=== PATIENT | female | born 1990 | race Caucasian/White ===

== ENCOUNTER → 2019-01-19 09:54 | Outpatient (CLI) | payer MEDICAID, SELFPAY ==
[2019-01-24 08:20] LABS: HPV Reflexed? NOT INDICATED
== END ==
PROVIDERS: Family Provider Family Medicine; PCP Family Medicine; Visit Provider Obstetrics & Gynecology
DX: Z12.4 Encounter for screening for malignant neoplasm of cervix (principal)
CPT/HCPCS: 87624; 88175; G0145

== ENCOUNTER → 2019-11-07 15:30 | Outpatient (CLI) | payer MEDICAID, SELFPAY ==
[2019-11-08 14:27] LABS: Chlamydia Trachomatis by PCR Negative (Negative); Neisserai gonorrhoeae by PCR Negative (Negative); Probe Check PASS; Sample Adequacy Control PASS; Specimen Processing Control PASS
== END ==
PROVIDERS: Visit Provider Obstetrics & Gynecology
DX: Z11.3 Encounter for screening for infections with a predominantly sexual mode of transmission (principal)
CPT/HCPCS: 87491; 87591

== ENCOUNTER → 2019-11-23 | Outpatient (CLI) | payer MEDICAID, SELFPAY ==
[2019-11-23 15:59] LABS: Color, Urine Yellow (Yellow); Glucose, Dipstick Normal (Normal); Ketone-Dipstick Negative (Negative); Leukocyte Esterase-Dipstick 500 /ul (Negative); Nitrite-Dipstick Negative (Negative); Occult Blood-Urine Negative /ul (Negative); Protein-Dipstick 15 mg/dl (Negative); Urine Bilirubin Dipstick Negative (Negative); Urine Clarity Clear (Clear); Urine Urobilinogen Normal (Normal)
[2019-11-23 16:20] LABS: Amphetamine Urine VISTA NEGATIVE (<1000 ng/mL); Barbiturate Urine VISTA NEGATIVE (< 200 ng/mL); Benzodiazepine Urine VISTA NEGATIVE (< 200 ng/mL); Cocaine Urine VISTA NEGATIVE (< 300 ng/mL); Ecstacy Urine VISTA NEGATIVE (< 500 ng/mL); Methadone Urine VISTA NEGATIVE (< 300 ng/mL); PCP Urine VISTA NEGATIVE (< 25 ng/mL); THC Urine VISTA NEGATIVE (< 50 ng/mL); Thyroid Stim Hormone (TSH) 3.24 uIU/mL (0.358-3.74); Vista UDS pH Range 5
[2019-11-23 16:33] LABS: Absolute Lymphocyte Count 0.97 X10^3/uL (0.83-4.51); Absolute Neutrophil Count 5.3 X10^3/uL (2.0-7.7); Basophil# 0.02 X10^3/uL; Basophil% 0.3 % (0-1); Eosinophil# 0.01 X10^3/uL; Eosinophils% 0.1 % (0-5); Hematocrit 41.5 % (37-47); Hemoglobin 13.9 g/dL (12.0-15.0); Lymphocyte # 0.97 X10^3/ul (4.0); Mean Corp Hgb Conc 33.5 g/dL (32-36); Mean Corpuscular Hgb 28.1 pg (27.0-32.0); Mean Platelet Vol. 9.6 fl (6.2-12.0); Monocyte# 0.65 X10^3/uL; Monocyte% 9.4 % (0-10); NRBC Flagged by Analyzer 0 % (0-5); Neutrophil # 5.27 X10^3/uL (2.7-7.7); Neutrophil % 75.8 % (47-70); Platelet Count 255 K/mm3 (150-450); RBC Distribution Width CV 13.4 % (11.6-14.6); RBC Distribution Width SD 41.3 fl (35.1-43.9); Red Blood Count 4.94 M/mm3 (4.2-5.4)
[2019-11-24 10:11] LABS: HIV - WCH Non-Reactive (Nonreactive); Hepatitis B Surface Antigen Non-Reactive (Nonreactive); Hepatitis C Antibody Non-Reactive (Nonreactive); Rubella IgG 60.1 IU/mL
[2019-11-30 02:23] LABS: Prenatal RPR NONREACTIVE (NONREACTIVE)
== END | disposition home or self-care (01) ==
LOC: WOBLAB 13:10
PROVIDERS: Referring Provider Obstetrics & Gynecology; Visit Provider Obstetrics & Gynecology
DX: Z34.81 Encounter for supervision of other normal pregnancy, first trimester (principal)
CPT/HCPCS: 80307; 81002; 84443; 85025; 86703; 86762; 86803; 87340

== ENCOUNTER → 2020-05-28 | Outpatient (CLI) | payer MEDICAID, SELFPAY ==
[2017-12-12 19:14] VITALS: BMI 28.2
== END | disposition home or self-care (01) ==
LOC: LABSPEC 05-29 08:46
PROVIDERS: Visit Provider Obstetrics & Gynecology
DX: Z36.85 Encounter for antenatal screening for Streptococcus B (principal)
CPT/HCPCS: 87081

== ENCOUNTER 2020-06-23 05:18 | Inpatient (IN) | payer MEDICAID, SELFPAY ==
[2017-12-12 19:14] VITALS: BMI 28.2
[2020-06-23] VITALS (25 sets, daily range): BP systolic 87–135; BP diastolic 45–78; PULSE 85–116; TEMP 36.3–37.1; O2SAT 96–98; BMI 35.2
[2020-06-23] MEDS: 0.9% Saline Lock 10 ML Syringe IV (05:50)
[2020-06-23 06:04] LABS: Absolute Lymphocyte Count 2.17 X10^3/uL (0.83-4.51); Absolute Neutrophil Count 8.9 X10^3/uL (2.0-7.7); Basophil# 0.05 X10^3/uL; Basophil% 0.4 % (0-1); Eosinophil# 0.23 X10^3/uL; Eosinophils% 1.8 % (0-5); Hematocrit 35.3 % (37-47); Hemoglobin 11.2 g/dL (12.0-15.0); Lymphocyte # 2.17 X10^3/ul (4.0); Lymphocyte % 16.8 % (19-41); Mean Corp Hgb Conc 31.7 g/dL (32-36); Mean Corpuscular Volume 88.3 fL (81-99); Monocyte# 1.16 X10^3/uL; NRBC Flagged by Analyzer 0.2 % (0-5); Neutrophil # 8.88 X10^3/uL (2.7-7.7); Neutrophil % 68.7 % (47-70); Platelet Count 184 K/mm3 (150-450); RBC Distribution Width CV 17.5 % (11.6-14.6); RBC Distribution Width SD 55.7 fl (35.1-43.9); White Blood Count 12.9 K/mm3 (4.4-11.0)
--- NOTE | 2020-06-23 07:04 | PCM.HP.OB ---
- Problem List (1) 39 weeks gestation of Status: Acute History Date of Admission: 06/23/20 Final KAYLA: 06/24/20 Final KAYLA Source: US <20 weeks Gestational age: 39 Weeks and 6 Days History of this : This is a 30 year-old, G [3], P [2002], at 39 6/7 weeks gestational age with c/o leaking of fluid. + FM, no vaginal bleeding. + contractions. Medical History: Medical History (Last Updated 06/23/20 @ 07:[address] Negin Morris MD) Patient denies medical problems Z78.9 Allergies No Known Allergies Allergy (Verified 06/23/20 05:59) Home Medications: Home Medications Calcium Carbonate [Tums] 1,000 mg PO TIDCM 12/02/17 Vit No.130/Iron/Folic [ Vitamins] 1 each PO DAILY 12/02/17 Smoking Status: Former smoker Alcohol: None Number of Fetus(es): 1 NST - FHR Rate Baby A Baseline: 125 Variability:: Moderate Accelerations:: 15 x 15 Decelerations:: None NST Reactive:: Yes FHR Category:: Category I Uterine Activity:: 3/10 min History Past Pregnancies: Past Pregnancies Delivery Date Name GA/ Weeks Outcome Route Wt Sex Labor Length Anesthesia Delivery Location Provider FOB 07/2011 39 Precip in ED [id number] M 6 None [facility] 11/2017 40 IOL, rapid second stage [id number] M 4 Epidural [facility] Labs: Mom's Problem List Problem Status Onset Code 39 weeks gestation of Acute [id number].39 Mom's Labs & Results 06/23/20 06/23/20 05:50 05:50 WBC 12.9 H RBC 4.00 L Hgb 11.2 L Hct 35.3 L MCV 88.3 MCH 28.0 MCHC 31.7 L RDW Std Deviation 55.7 H RDW Coeff of Loyda 17.5 H Plt Count 184 MPV 9.0 Immature Gran % (Auto) 3.300 H Neut % (Auto) 68.7 Lymph % (Auto) 16.8 L Gage % (Auto) 9.0 Eos % (Auto) 1.8 Baso % (Auto) 0.4 Absolute Neuts (auto) 8.9 H Absolute Lymphs (auto) 2.17 Nucleated RBC % 0.2 Blood Type A NEGATIVE Antibody Screen NEGATIVE Course Did the patient receive Yes care? Labs Blood Type: A RH: NEGATIVE RPR/VDRL/Syphilis Nonreactive Rubella status Immune HbSAg Negative Date Done: 11/13/20 Chlamydia Negative Gonorrhea Negative HIV/AIDS Non-Reactive Group B Strep: Negative Current Obstetrical History Gestational Diabetes No Incompetent Cervix No Infertility No IUGR No Macrosomia No Hypertension/Pre-eclampsia No Placenta Previa/Abruption No PTL/PROM No Uterine anomaly No Oligohydramnios No Polyhydramnios No Multiple gestation No Past Medical History Asthma No Diabetes No Hypertension No Heart disease No Mitral valve prolapse No Neurologic/Seizure disorder/ No Migraines Kidney disease No Liver disease No Varicosities No Clotting disorders/Hx of DVT No Thyroid Dysfunction No Other medical diseases No Psychiatric disorders No Major trauma No Abnormal PAP smear No Sleep apnea No Mammogram in the last 2 years No Social History Marital Status: SINGLE Alleged father Kevin Hx Smoking No Smoking Status Former smoker How long have you used n/a substances (years)? Expected Infant Delivery Method: Spontaneous Vaginal Describe any other labor & delivery plans:: Expectant management Number of Visits: 12 Review of Systems Constitutional: Denies: Chills, Fever Eyes: Denies: Vision Change HEENT: Denies: Head Aches, Sore Throat Cardiovascular: Denies: Chest Pain Respiratory: Denies: Shortness of Breath Gastrointestinal: Denies: Constipation, Diarrhea, Nausea Physical Exam Vitals: Vital Signs Temp Pulse BP Pulse Ox 98.3 F 94 127/73 H 96 06/23/20 06:13 06/23/20 06:14 06/23/20 06:14 06/23/20 06:13 General: Alert, Oriented x3, Cooperative, No apparent distress HEENT: Atraumatic, Normocephalic Cardiovascular: Regular rate, Regular Rhythm, Normal S1, Normal S2 Lungs: Clear to auscultation, Normal air movement Abdomen: Soft, Non Tender, Non-Distended, Gravid Extremities:: No edema Neurological: Neuro grossly intact Estimated gestational size: Appropriate for gestational size Presentation: - - cephalic on US Cervix Dilation (cm): 2.5 - per RN exam B [facility] Station: -3 Effacement (%): 50 Assessment/Plan All Active Problems 39 weeks gestation of (Acute) This is a 30 year-old, G [3], P [2], at 39 6/7 weeks gestational age with SROM, latent labor, Cat I FHR -Recent outpatient [id number] negative
--- NOTE | 2020-06-23 12:49 | PCM.PN.BLA ---
Progress Note LABOR PROGRESS NOTE Verna is doing well. No complaints. Contractions remain mild. AVSS GEN - NAD, AAO x 3 FHR 140, moderate variability, no accelerations, no decelerations TOCO 2/10 min SVE 3/50/-3, moderate and midposition A/P: 30yo @ 39 6/7wga with SROM in latent labor, Cat I FHR -Recommended pitocin. ROM > 8h without significant change. Discussed r/b/i and expectant management as alternative. Pt agreeable to proceed. -Maternal and statuses reassuring STROKE Vital Signs/Narrative: Vital Signs Temp Pulse BP Pulse Ox 06/23/20 12:32 93 129/72 H 06/23/20 11:35 98.4 F 94 112/73 98 06/23/20 09:54 103 H 113/64 06/23/20 09:03 98.4 F 100 135/78 H
[2020-06-23] MEDS: Lactated Ringers 1,000 ML 200 ML IV (12:55)
[2020-06-23] MEDS: Oxytocin 30 units/NS 500 ml 30 UNITS/500 ML IV.SOLN IV (12:55)
[2020-06-23] MEDS: Lactated Ringers 500 ML 999 ML IV (18:06)
[2020-06-23] MEDS: Oxytocin 30 units/NS 500 ml 30 UNITS/500 ML IV.SOLN 334 UNITS IV (18:27)
--- NOTE | 2020-06-23 18:33 | PCM.OPRPT ---
Problem List (1) 39 weeks gestation of Status: Acute (2) (spontaneous vaginal delivery) Status: Acute Vaginal Delivery Maternal Presentation: Spontaneous Rupture of Membranes Method of Induction: - - Pitocin augmentation Amniotic Membrane Rupture Type: Spontaneous at home Rupture of Membrane time: 06/23/20 0340h Amniotic Fluid Description: Clear Final KAYLA: 06/24/20 Final KAYLA Source: US <20 weeks Gestational age: 39 Weeks and 6 Days Date of Procedure: 06/23/20 Pre-Operative Diagnosis: 39 6/7 wga, labor Post-Operative Diagnosis: 39 6/7 wga, labor Surgery/ Procedure Performed: Spontaneous Vaginal Delivery Type of Anesthesia: None Description of Procedure: Patient was 7cm dilaton my arrival and progressed to 8.5cm with Category I FHR. She began involuntary pushing. With further expulsive efforts there was Cat II FHR with deepening variable decelerations. ISE placed with exam anterior lip with 0 station. Pitocin was discontinued and oxygen administered while patient breathed through contractions. Exam remained unchanged. Patient was repositioned into hands and knees. She again began involuntary pushing followed by of . The mouth and nares were bulb suctioned and nuchal cord x 1 was reduced. She pushed to deliver a vigorous male infant through a remaining nuchal cord x 1. The infant was passed to his mother and nursery personnel. The cord was doubly clamped and cut at approximately 3 minutes of life. Cord blood specimen was obtained. The placenta delivered spontaneously. Perineum intact. There was excellent hemostasis. Sponge counts correct x 2. Presentation: Vertex Placental Delivery Description: Spontaneous Placenta Disposition: [facility] Cord Vessel Description: 3 Vessels Nuchal Cord Compression: With compression Cord Entanglement: Around neck x 2, loose Estimated Blood Loss: 50 ml Infant A gender: Male (1 minute): 8 (5 minute): 9 Episiotomy Description: None Laceration: None Medications given after delivery: IV Pitocin Complications: None
[2020-06-23] MEDS: Ibuprofen 600 MG Tablet PO (19:21)
--- NOTE | 2020-06-23 21:37 | DCINST_ITS ---
Discharge Diet: No Restrictions Discharge Activity: Return to Normal Activity, May Shower, May Take a Tub Bath May resume sexual activity in: 4-6 weeks Additional Instructions: If you experience any of the following, contact your healthcare provider. * Bleeding that soaks a pad every hour for 2 hours * Fever 100.4 or higher * Unrelieved incision or abdominal pain * Swelling, redness, discharge or bleeding from your incision or episiotomy site * Your incision begins to separate * Problems urinating (including inability to urinate or burning while urinating). * Visual changes * Severe headache * Flu-like symptoms * Pain or redness in one of both of your breasts * Pain, warmth, tenderness or swelling in your legs, especially the calf area * Frequent nausea and vomiting * Symptoms of depression or anxiety If you experience any of the following, call 911 or go to the nearest Emergency Room. * Chest pain * Problems breathing * Seizure activity * Partial or complete paralysis of a body part, slurred speech, weakness or marily oping of the face, or a sudden inability to walk or hold your balance Allergies/Adverse Reactions: Allergies No Known Allergies Allergy (Verified 06/23/20 05:59) Medications to take at Discharge Vit No.130/Iron/Folic [ Tablet] 1 each PO DAILY 12/02/17 Ibuprofen [Motrin] 600 mg PO Q8H PRN PRN #30 tab 06/23/20 The following prescriptions were given: Ibuprofen [Motrin] 600 mg PO Q8H PRN PRN #30 tab PRN Reason: Pain Score 1-10/10 Transmission Status: Sent to [id number] Please Follow Up With: Eric Hurley MD - visit When: 6 weeks Primary Care Physician: Maurizio Sanders MD [Primary Care Provider] - Test Results: Test results from this visit will be discussed in further detail at your follow- up appointment, if applicable.
--- NOTE | 2020-06-23 21:37 | PCM.DCVAG ---
Discharge Diet: No Restrictions Discharge Activity: Return to Normal Activity, May Shower, May Take a Tub Bath May resume sexual activity in: 4-6 weeks Additional Instructions: If you experience any of the following, contact your healthcare provider. Bleeding that soaks a pad every hour for 2 hours Fever 100.4 or higher Unrelieved incision or abdominal pain Swelling, redness, discharge or bleeding from your incision or episiotomy site Your incision begins to separate Problems urinating (including inability to urinate or burning while urinating). Visual changes Severe headache Flu-like symptoms Pain or redness in one of both of your breasts Pain, warmth, tenderness or swelling in your legs, especially the calf area Frequent nausea and vomiting Symptoms of depression or anxiety If you experience any of the following, call 911 or go to the nearest Emergency Room. Chest pain Problems breathing Seizure activity Partial or complete paralysis of a body part, slurred speech, weakness or drooping of the face, or a sudden inability to walk or hold your balance Allergies/Adverse Reactions: Allergies No Known Allergies Allergy (Verified 06/23/20 05:59) Medications to take at Discharge Vit No.130/Iron/Folic [ Tablet] 1 each PO DAILY 12/02/17 Ibuprofen [Motrin] 600 mg PO Q8H PRN PRN #30 tab 06/23/20 The following prescriptions were given: Ibuprofen [Motrin] 600 mg PO Q8H PRN PRN #30 tab PRN Reason: Pain Score 1-10/10 Transmission Status: Sent to [id number] Please Follow Up With: Eric Hurley MD - visit When: 6 weeks Primary Care Physician: Maurizio Sanders MD [Primary Care Provider] - Test Results: Test results from this visit will be discussed in further detail at your follow-up appointment, if applicable.
[2020-06-24 01:17] VITALS: BP 113/68; PULSE 84; RESP 18; TEMP 36.5
[2020-06-24 04:49] VITALS: BP 111/76; PULSE 93; RESP 18; TEMP 36.4
[2020-06-24] MEDS: Ibuprofen 600 MG Tablet PO (05:09)
[2020-06-24 07:45] VITALS: BP 116/67; PULSE 85; RESP 16; TEMP 36.6
--- NOTE | 2020-06-24 08:52 | PCM.PN.OB ---
Patient Problems: Active and Suspected Problems (Last Updated 06/23/20 @ 07:[address] Negin Morris MD) 39 weeks gestation of (Acute) (spontaneous vaginal delivery) (Acute) Subjective: No issues overnight. Reports just passed a clot. Feels well and cramping controlled with Ibuprofen. She is expressing milk and has mixed feelings about due to hx mastitis with her second. No complaints. Objective: AVSS - Physical Exam Vitals/I&O's: Vital Signs Temp Pulse Resp BP Pulse Ox 98 F 85 16 116/67 98 06/24/20 07:45 06/24/20 07:45 06/24/20 07:45 06/24/20 07:45 06/23/20 19:15 Oxygen Delivery Method Room Air Weight: 93.077 kg Body Mass Index (BMI) 35.2 Intake and Output for Last 24 Hours 06/22/20 06/23/20 06/24/20 23:59 23:59 23:59 Intake Total 1756.37 / 1756.37 Output Total 350 / 350 Balance 1406.37 / 1406.37 General: Alert, Oriented x3, Cooperative, No apparent distress HEENT: Atraumatic, Normocephalic Lungs: Clear to auscultation, Normal air movement Cardiovascular: Regular rate, Regular Rhythm, Normal S1, Normal S2 Abdomen: Soft, Non Tender, Non-Distended, - - Fundus firm and nontender, lochia moderate with approx 50cc clot present on pad Extremities: No Calf Tenderness, - - LE bilateral nonpitting edema Neurological: Neuro grossly intact Psych/Mental Status: Normal Affect, Appropriate, Alert and oriented to time, place, person, mood and affect Laboratory Results 06/23/20 20:43: Screen NEGATIVE, Baby's Blood Type O POSITIVE, Baby's ABDULLAHI NEGATIVE Current Medications Acetaminophen (Tylenol) 1,000 mg PO Q8H PRN PRN PRN Reason: Pain Score 1-10/10 Bisacodyl (Dulcolax) 10 mg RECTAL UD PRN PRN Reason: If no BM Dibucaine (Dibucaine) 1 applic TOPICAL TID PRN PRN; Protocol PRN Reason: Discomfort Hydrocortisone (Hytone) 1 applic TOPICAL TID PRN PRN; Protocol PRN Reason: Discomfort Ibuprofen (Motrin) 600 mg PO Q6H PRN PRN PRN Reason: Pain Score 1-10/10 Last Admin: 06/24/20 05:09 Dose: 600 mg Documented by: Methylergonovine Maleate (Methergine) 0.2 mg IM X1 PRN PRN Reason: Excess bleeding/uterine atony Ondansetron HCl (Zofran) 4 mg IV Q4H PRN PRN PRN Reason: NAUSEA Multivit/Folic Acid/Iron (Prenatabs Fa) 1 tablet PO DAILY@1200 [place] Senna/Docusate Sodium (Senokot-S, Nancy-Colace) 1 - 2 tablet PO DAILY PRN PRN PRN Reason: Constipation Simethicone (Mylicon) 80 mg PO PCHS PRN PRN Reason: Indigestion/Stomach pain Sodium Chloride () 5 - 15 ml IV UD PRN PRN Reason: SALINE FLUSH Medical Necessity - Tobacco Use Smoking Status: Former smoker Assessment/Plan All Active Problems (Last Updated 06/23/20 @ 07:[address] Negin Morris MD) 39 weeks gestation of (Acute) (spontaneous vaginal delivery) (Acute) This is a 30 year-old, G [3], P [3003] s/p doing well. -Rh negative, infant o pos - for Rhogam -Routine care -Breast and bottlefeeding
[2020-06-24 12:20] VITALS: BP 120/81; PULSE 120; RESP 16; TEMP 36.4
[2020-06-24 17:10] VITALS: BP 116/72; PULSE 83; RESP 16; TEMP 36.4
== END 2020-06-24 20:40 | disposition home or self-care (01) | DRG 560 ==
PROVIDERS: Admitting Provider Obstetrics & Gynecology; Visit Provider Obstetrics & Gynecology
DX: O69.81X0 Labor and delivery complicated by cord around neck, without compression, not applicable or unspecified (principal); O76 Abnormality in fetal heart rate and rhythm complicating labor and delivery; Z87.891 Personal history of nicotine dependence; Z3A.39 39 weeks gestation of pregnancy; Z37.0 Single live birth
CPT/HCPCS: 59025; 59050; 76815; 85025; 85461; 86850; 86900; 86901; 90384; 99218; J7120; A4216; G0378; J2790

== ENCOUNTER → 2021-09-23 | Outpatient (CLI) | payer MEDICAID, SELFPAY ==
[2021-09-27 23:29] LABS: HPV Reflexed? NOT INDICATED
== END | disposition home or self-care (01) ==
LOC: LABSPEC 09-24 10:31
PROVIDERS: Visit Provider Obstetrics & Gynecology
DX: Z12.4 Encounter for screening for malignant neoplasm of cervix (principal)
CPT/HCPCS: 88175; G0145

== ENCOUNTER → 2022-04-20 | Outpatient (CLI) | payer BC, SELFPAY ==
[2022-04-20 15:26] LABS: Absolute Lymphocyte Count 1.81 X10^3/uL (0.83-4.51); Basophil# 0.04 X10^3/uL; Basophil% 0.4 % (0-1); Eosinophil# 0.14 X10^3/uL; Eosinophils% 1.4 % (0-5); Hematocrit 40.1 % (37-47); Hemoglobin 13.1 g/dL (12.0-15.0); Lymphocyte # 1.81 X10^3/ul (0.83-4.51); Lymphocyte % 18.4 % (19-41); Mean Corp Hgb Conc 32.7 g/dL (32-36); Mean Corpuscular Hgb 27.5 pg (27.0-32.0); Mean Corpuscular Volume 84.1 fL (81-99); Mean Platelet Vol. 8.8 fl (6.2-12.0); Monocyte% 8.1 % (0-10); NRBC Flagged by Analyzer 0 % (0-5); Neutrophil # 7.01 X10^3/uL (2.7-7.7); Neutrophil % 71.1 % (47-70); Platelet Count 289 K/mm3 (150-450); RBC Distribution Width CV 14.7 % (11.6-14.6); RBC Distribution Width SD 44.8 fl (35.1-43.9); Red Blood Count 4.77 M/mm3 (4.2-5.4); White Blood Count 9.9 K/mm3 (4.4-11.0)
[2022-04-21 10:54] LABS: HIV - WCH Non-Reactive (Nonreactive); Hepatitis B Surface Antigen Non-Reactive (Nonreactive); Hepatitis C Antibody Non-Reactive (Nonreactive); Rubella IgG Reactive (Nonreactive); Syphilis Antibodies Non-reactive
[2022-04-22 21:08] LABS: Chlamydia By Nucleic Acid AMP Negative (Negative)
[2022-04-22 21:44] LABS: Gonococcus By Nucleic Acid AMP Negative (Negative)
== END | disposition home or self-care (01) ==
LOC: WOBLAB 14:27
PROVIDERS: Visit Provider Obstetrics & Gynecology
DX: Z34.81 Encounter for supervision of other normal pregnancy, first trimester (principal); Z11.3 Encounter for screening for infections with a predominantly sexual mode of transmission
CPT/HCPCS: 36415; 85025; 86703; 86762; 86780; 86803; 87077; 87086; 87088; 87340; 87491; 87591

== ENCOUNTER → 2022-08-11 | Outpatient (CLI) | payer BC, MEDICAID, SELFPAY ==
[2022-08-11 09:14] LABS: Absolute Lymphocyte Count 1.57 X10^3/uL (0.83-4.51); Absolute Neutrophil Count 8.3 X10^3/uL (2.0-7.7); Basophil# 0.04 X10^3/uL; Basophil% 0.4 % (0-1); Eosinophil# 0.16 X10^3/uL; Eosinophils% 1.5 % (0-5); Hematocrit 35.7 % (37-47); Hemoglobin 11.7 g/dL (12.0-15.0); Lymphocyte # 1.57 X10^3/ul (0.83-4.51); Lymphocyte % 14.4 % (19-41); Mean Corp Hgb Conc 32.8 g/dL (32-36); Mean Corpuscular Hgb 28.9 pg (27.0-32.0); Mean Corpuscular Volume 88.1 fL (81-99); Mean Platelet Vol. 8.9 fl (6.2-12.0); Monocyte# 0.61 X10^3/uL; Monocyte% 5.6 % (0-10); NRBC Flagged by Analyzer 0 % (0-5); Neutrophil # 8.28 X10^3/uL (2.7-7.7); Platelet Count 212 K/mm3 (150-450); RBC Distribution Width CV 14.9 % (11.6-14.6); RBC Distribution Width SD 47.5 fl (35.1-43.9); Red Blood Count 4.05 M/mm3 (4.2-5.4); White Blood Count 10.9 K/mm3 (4.4-11.0)
[2022-08-11 09:49] LABS: Glucose Challenge Gest 1H 50g 120 mg/dL (70-140)
== END | disposition home or self-care (01) ==
LOC: WOBLAB 08:41
PROVIDERS: Visit Provider Obstetrics & Gynecology
DX: Z34.82 Encounter for supervision of other normal pregnancy, second trimester (principal)
CPT/HCPCS: 36415; 82950; 85025

== ENCOUNTER → 2022-09-02 | Outpatient (CLI) | payer BC, MEDICAID, SELFPAY | END | disposition home or self-care (01) | LOC: WOBLAB 16:21 | PROVIDERS: Visit Provider Obstetrics & Gynecology | DX: Z34.83 Encounter for supervision of other normal pregnancy, third trimester (principal) | CPT/HCPCS: 36415; 86850 ==

== ENCOUNTER 2022-09-25 02:25 | Outpatient (CLI) | payer BC, MEDICAID, SELFPAY ==
[2022-09-25 02:33] VITALS: PULSE 100; O2SAT 98
[2022-09-25 02:34] VITALS: BP 121/64; PULSE 105
[2022-09-25 02:37] VITALS: TEMP 37
[2022-09-25 02:40] VITALS: BMI 36.1
[2022-09-25 02:52] VITALS: TEMP 36.6
--- NOTE | 2022-09-25 17:30 | OB.TRI.NOTE ---
HPI - General General Date of Admission: 09/25/22 HPI Narrative MARIA DEL CARMEN JOHN, is a 32 F who presents decreased movement PFSH PFSH Medical History (Updated 09/25/22 @ 17:[address] Abdirahman John MD) Patient denies medical problems Home Medications vits no.130-ferrous fum 27 mg iron-folic acid 800 mcg tablet ( Vitamin) 1 ea PO DAILY 12/02/17 [History Last Taken 09/24/22] Allergy/AdvReac Type Severity Reaction Status Date / Time No Known Allergies Allergy Verified 09/25/22 02:43 Surgical History (Updated 06/23/20 @ 07:[address] Negin Morris MD) No history of previous surgery Social History Smoking Status: Former smoker History Elective abortions Hx Para 2 Spontaneous abortions Hx # Term Pregnancies Ectopic pregnancies Hx # Pregnancies Multiple births # of living children NST FHR Rate Baby A Baseline: 150 Variability:: Moderate Accelerations:: 10 x 10 Decelerations:: None NST Reactive:: Yes Uterine Activity:: Quiet Assessment & Plan (1) : PLAN: Patient with decreased movement, reactive NST. Reassuring. Okay to discharge home follow-up scheduled appointments
== END 2022-09-25 03:42 | disposition home or self-care (01) ==
LOC: WPOUT 02:28 → WP 02:29
PROVIDERS: Visit Provider Obstetrics & Gynecology
DX: O36.8190 Decreased fetal movements, unspecified trimester, not applicable or unspecified (principal); Z87.891 Personal history of nicotine dependence
CPT/HCPCS: 59025; 59050; 99218; G0378

== ENCOUNTER → 2022-10-29 | Outpatient (CLI) | payer BC, MEDICAID, SELFPAY | END | disposition home or self-care (01) | LOC: LABSPEC 16:45 | PROVIDERS: Visit Provider Obstetrics & Gynecology | DX: Z36.85 Encounter for antenatal screening for Streptococcus B (principal) | CPT/HCPCS: 87081 ==

== ENCOUNTER 2022-11-20 01:02 | Inpatient (IN) | payer BC, MEDICAID, SELFPAY ==
[2022-11-20] VITALS (14 sets, daily range): BP systolic 93–144; BP diastolic 60–84; PULSE 68–87; RESP 18; TEMP 36.4–36.7; O2SAT 98; BMI 37.8
[2022-11-20] MEDS: LACTATED RINGERS 500 ML 999 ML IV (01:15)
[2022-11-20] MEDS: Lactated Ringers 1,000 ML 50 ML IV (01:15)
[2022-11-20 01:31] LABS: Absolute Lymphocyte Count 2.64 X10^3/uL (0.83-4.51); Absolute Neutrophil Count 7.6 X10^3/uL (2.0-7.7); Basophil# 0.05 X10^3/uL; Basophil% 0.4 % (0-1); Eosinophil# 0.09 X10^3/uL; Eosinophils% 0.8 % (0-5); Hemoglobin 13.3 g/dL (12.0-15.0); Lymphocyte # 2.64 X10^3/ul (0.83-4.51); Lymphocyte % 22.9 % (19-41); Mean Corp Hgb Conc 33.3 g/dL (32-36); Mean Corpuscular Hgb 28.9 pg (27.0-32.0); Mean Platelet Vol. 8.7 fl (6.2-12.0); Monocyte# 0.96 X10^3/uL; Monocyte% 8.3 % (0-10); NRBC Flagged by Analyzer 0 % (0-5); Neutrophil # 7.59 X10^3/uL (2.7-7.7); Platelet Count 204 K/mm3 (150-450); RBC Distribution Width CV 14.3 % (11.6-14.6); RBC Distribution Width SD 45.6 fl (35.1-43.9); White Blood Count 11.5 K/mm3 (4.4-11.0)
[2022-11-20] MEDS: Oxytocin 10 UNITS/ML Vial IM (01:55)
--- NOTE | 2022-11-20 02:08 | PCM.HP.BLA ---
History and Physical Date of Admission: 11/20/22 Chief complaint: Contractions History present illness: 32-year-old G4, P3 at 39 weeks and 4 days with KAYLA 11/23/2022 arrives with contractions. Denies headache, vision change, chest pain, shortness of breath, nausea vomit, right upper quadrant pain. Patient states good movement. Obstetric history: G1: term male G2: term male 8 pounds 10 ounces G3: term male 7 pounds 15 ounces G4: Current Past medical history: None Medications: None Allergies: No known drug allergies Past surgical history: None Family history: Denies history DVT or PE Social history: Denies smoking, alcohol, drug use Review of systems: Besides above pertinent positives a full review of systems was performed and found to be negative Physical exam: Vitals: Blood pressure 114/72 pulse 77 General: Normal-appearing no acute distress HEENT: Normocephalic/atraumatic no cervical of adenopathy Cardiac/respiratory: No use of accessory muscles, nonlabored breathing Abdomen: Soft, nontender, gravid Extremities: No peripheral edema normal peripheral pulses Psych: Normal affect normal demeanor nonpressured speech Labs: White blood cell count 11.5 hemoglobin 13.3 hematocrit 40.0% platelets 204 Assessment plan: 32-year-old G4, P3 at 39 weeks and 4 days called by nursing and admitted for labor. Routine orders given. GBS negative
--- NOTE | 2022-11-20 02:10 | EX.PCM.OBRPT ---
Vaginal Delivery Operative Information Date of Procedure: 11/20/22 Findings Description of Procedure: Arrived to patient's room with baby on mom's chest. Placenta delivered via cord traction and fundal massage. 10 units of IM Pitocin given. No lacerations noted. Clots noted in lower uterine segment cleared with bimanual exam. Given IM Methergine. Good hemostasis noted. EBL 350 cc Apgars 8/9
[2022-11-20] MEDS: Methylergonovine 0.2 MG/ML Ampul IM (02:26)
[2022-11-20] MEDS: Ibuprofen 600 MG Tablet PO ×2 (03:03→15:21)
[2022-11-20] MEDS: Acetaminophen 500 MG Tablet 1000 MG PO (04:33)
[2022-11-21 02:05] VITALS: BP 111/75; PULSE 70; RESP 18
[2022-11-21 08:29] VITALS: BP 100/58; PULSE 85; RESP 16; TEMP 36.6
--- NOTE | 2022-11-21 09:02 | DCINST_ITS ---
Discharge Instructions Diet Discharge Diet: No restrictions Activity Discharge Activity: Return to Normal Activity, May Drive and May Shower May resume sexual activity in: 4-6 weeks Weight Bearing Status: Weight bearing as tolerated Dressing / Incision Call your doctor if your incision/area has: Continuous Slow Oozing and Foul Smelling Discharge Call your doctor if you observe: Fever of 101 or Higher, Shortness of breath and Chest pain Follow Up Care Please Follow Up With: Abdirahman John MD When: 4 to 6 weeks Test Results: Test results from this visit will be discussed in further detail at your follow- up appointment, if applicable. Discharge Plan Admission Admit Date/Time: 11/20/22 01:02 Attending Provider: Abdirahman John Primary Care Provider: Care Physician,Jennie Primary Discharge Orders/Prescriptions Prescriptions: No Action Vitamin 1 EACH tablet 1 ea PO DAILY Referrals / Follow Up: Care Physician,No Primary [Primary Care Provider] - Disposition Discharge Orders: Discharge Patient (Routine); Ordered 11/21/22 Ordered By: Dr. Abdirahman John
--- NOTE | 2022-11-21 09:02 | PCM.PN.OB ---
Subjective Subjective No overnight complaints Objective Data Objective Data Vital Signs: Vital Signs Temp Pulse Resp BP Pulse Ox O2 Del Method 97.9 F 85 16 100/58 L 98 Room Air 11/21/22 08:29 11/21/22 08:29 11/21/22 08:29 11/21/22 08:29 11/20/22 08:30 11/21/22 08:29 Oxygen Delivery Method Room Air Weight: 220 lb Body Mass Index (BMI) 37.8 Intake & Output: Intake and Output for Last 24 Hours 11/19/22 11/20/22 11/21/22 23:59 23:59 23:59 Intake Total 416.25 / 416.25 Output Total 750 / 750 Balance -333.75 / -333.75 Lab / Micro Data Result Diagrams: 11/20/22 01:20 Physical Exam Const alert, oriented x3, no apparent distress, average body habitus, healthy appearing and well nourished HEENT normocephalic and moist oral mucous membranes Eyes PERRL Neck full ROM Resp normal respiratory effort, no retractions and no use of accessory muscles Extremity normal to inspection, full ROM and no clubbing, cyanosis or edema Neuro moves all extremities and no focal motor deficits Psych mental status grossly normal, affect normal, speech normal and activity/motor behavior normal Assessment & Plan (1) Vaginal delivery: PLAN: day 1. Breast-feeding. Pain well controlled. 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
== END 2022-11-21 10:35 | disposition home or self-care (01) | DRG 807 ==
LOC: WPOUT 01:04 → WP 01:04
PROVIDERS: Admitting Provider Obstetrics & Gynecology; Visit Provider Obstetrics & Gynecology
DX: O80 Encounter for full-term uncomplicated delivery (principal); Z37.0 Single live birth; Z3A.39 39 weeks gestation of pregnancy
CPT/HCPCS: 59050; 85025; 85461; 86850; 86900; 86901; 99218; J7120; G0378; J2790